=== PATIENT | female | born 1965 | race Two or more races ===

== ENCOUNTER 2021-03-31 06:30 | Day surgery (SDC) | payer OTHER | END 2021-03-31 12:15 | disposition home or self-care (01) | LOC: AMB-ENDOS 06:30 | PROVIDERS: ATTEND Surgery | DX: D12.0 Benign neoplasm of cecum (principal); D12.2 Benign neoplasm of ascending colon; Z20.822 Contact with and (suspected) exposure to COVID-19 ==

== ENCOUNTER 2021-04-15 05:45 | Inpatient (IN) | payer OTHER ==
[~2021-04-15] VITALS: Ht 165.1 cm; Wt 117.9 kg
[~2021-04-15 05:45] MED LIST: COZAAR50 MG PO
== END 2021-04-16 10:42 | disposition home or self-care (01) | DRG 735 ==
LOC: CIR.AMB 05:45 → O/R 10:57 → OB/GYN 10:57 → CIR.AMB 12:30 → OB/GYN 04-16 10:42
PROVIDERS: ADMIT Obstetrics & Gynecology Gynecologic Oncology; ATTEND Obstetrics & Gynecology Gynecologic Oncology
PROC: 0UT24ZZ Resection of Bilateral Ovaries, Percutaneous Endoscopic Approach (ICD-10-PCS; 2021-04-15)
PROC: 0DBW4ZZ Excision of Peritoneum, Percutaneous Endoscopic Approach (ICD-10-PCS; 2021-04-15)
PROC: 0UT74ZZ Resection of Bilateral Fallopian Tubes, Percutaneous Endoscopic Approach (ICD-10-PCS; 2021-04-15)
PROC: 3E1M48Z Irrigation of Peritoneal Cavity using Irrigating Substance, Percutaneous Endoscopic Approach (ICD-10-PCS; 2021-04-15)
PROC: 07TD4ZZ Resection of Aortic Lymphatic, Percutaneous Endoscopic Approach (ICD-10-PCS; principal; 2021-04-15 07:00)
DX: D27.1 Benign neoplasm of left ovary (principal); D27.0 Benign neoplasm of right ovary; Z20.822 Contact with and (suspected) exposure to COVID-19